=== PATIENT | male | born 1940 | race Caucasian/White ===

== ENCOUNTER → 2018-09-25 | Outpatient (CLI) | payer OTHER ==
[~2018-09-25] MED LIST: ANTIVERT25 MG PO; ASPIR 8181 MG PO; BASAGLAR K100 UNIT/1 SUBQ; COQ-10100 MG PO; HUMALOG100 UNIT/1 SUBQ; IRON325 PO; LEVAQUIN 750 M750 MG PO; LIPITOR 20 MG T20 M1 PO; LISINOPRIL20 MG PO; METFORMIN HCL500 MG PO; NITROGLYCERIN0.4 MG SUBLING; PLAVIX 75 MG TA75 M1 PO; PROSCAR 5MG TABL5 MG PO; PROTONIX40 M1 PO; TYLENOL325 MG PO
--- NOTE | 2018-09-25 17:51 | 2DMMODE ---
[place] [address] 2 D/M-MODE ECHOCARDIOGRAM Name: ELEONORA WINKLER Room: [facility]#: [id number] Admission: 09/25/18 Attend Phys: Jennifer Rubio, Discharge: Date of : 40 Date of Service: 09/25/18 1751 Report #: [id number] THIS REPORT FOR: //name// APPROVED REPORT Study performed: 09/25/2018 14:10:30 EXAM: Comprehensive 2D, Doppler, and color-flow Echocardiogram Patient Location: Out-Patient Status: routine BSA: 2.15 HR: 82 bpm Other Information Study Quality: Good Indications Murmur 2D Dimensions IVSd: 13.84 (7-11mm) LVOT Diam: 19.98 (18-24mm) LVDd: 46.89 mm PWd: 12.25 (7-11mm) Ascending Ao: 29.69 (22-36mm) LVDs: 25.24 (25-40mm) Aortic Root: 32.45 mm Volumes Left Atrial Volume (Systole) LA ESV Index: 26.00 mL/m2 Aortic Valve AoV Peak Luisito.: 3.47 m/s AO Peak Gr.: 48.08 mmHg LVOT Max P.17 mmHg AO Mean Gr.: 29.46 mmHg LVOT Mean P.90 mmHg LVOT Max V: 1.24 m/s AO V2 VTI: 66.27 cm LVOT Mean V: 0.77 m/s SALVATORE (VTI): 1.25 cm2 LVOT V1 VTI: 26.35 cm Mitral Valve MV Peak Gr.: 11.54 mmHg MV Mean Gr.: 4.66 mmHg E/A Ratio: 0.70 MV Decel. Time: 333.58 ms MV E Max Luisito.: 1.01 m/[place] [address] 2 D/M-MODE ECHOCARDIOGRAM Name: ELEONORA WINKLER Room: [facility]#: [id number] Admission: 09/25/18 Attend Phys: Jennifer Rubio, Discharge: Date of : 40 Date of Service: 09/25/18 1751 Report #: [id number] MV PHT: 96.74 ms MVA (PHT): 2.27 cm2 TDI E/Lateral E': 14.43 E/Medial E': 14.43 Medial E' Luisito.: 0.07 m/s Lateral E' Luisito.: 0.07 m/s Pulmonary Valve PV Peak Luisito.: 1.43 m/s PV Peak Gr.: 8.14 mmHg Tricuspid Valve RAP Estimate: 5.00 mmHg TR Peak Gr.: 26.60 mmHg RVSP: 31.60 mmHg PA Pressure: 31.60 mmHg Left Ventricle The left ventricle is normal size. There is normal LV segmental wall motion. Mild concentric left ventricular hypertrophy. Left ventricular systolic function is normal. The left ventricular ejection fraction is within the normal range. LVEF is 65%. Grade I - abnormal relaxation pattern. Right Ventricle The right ventricle is normal size. The right ventricular systolic function is normal. Atria The left atrium size is normal. The right atrium size is normal. Aortic Valve Aortic valve is calcified. Trace aortic regurgitation. Moderate aortic stenosis. Mitral Valve There is mitral annular calcification. Mild mitral regurgitation. No evidence of mitral valve stenosis. Tricuspid Valve The tricuspid valve is normal in structure. Mild tricuspid regurgitation. Pulmonic Valve The pulmonary valve is normal in structure. There is no pulmonic valvular [place] [address] 2 D/M-MODE ECHOCARDIOGRAM Name: ELEONORA WINKLER Room: [facility]#: [id number] Admission: 09/25/18 Attend Phys: Jennifer Rubio, Discharge: Date of : 40 Date of Service: 09/25/18 1751 Report #: [id number] Great Vessels The aortic root is normal in size. IVC is normal in size and collapses >50% with inspiration. Pericardium There is no pericardial effusion. <Conclusion> The left ventricle is normal size. Mild concentric left ventricular hypertrophy. Left ventricular systolic function is normal. The left ventricular ejection fraction is within the normal range. LVEF is 65%. Grade I - abnormal relaxation pattern. The right ventricle is normal size. The left atrium size is normal. Aortic valve is calcified. Trace aortic regurgitation. Moderate aortic stenosis. There is mitral annular calcification. Mild mitral regurgitation. No evidence of mitral valve stenosis. The tricuspid valve is normal in structure. IVC is normal in size and collapses >50% with inspiration. There is no pericardial effusion. There is normal LV segmental wall motion. <ELECTRONICALLY SIGNED> By: Go Joel MD, FACC 09/25/181750 50 50 Go Joel MD, FACC /INF
== END ==
LOC: M.CRD 13:44
DX: I08.1 Rheumatic disorders of both mitral and tricuspid valves (principal)

== ENCOUNTER → 2018-09-27 | Outpatient (CLI) | payer OTHER ==
[~2018-09-27] VITALS: Ht 180.3 cm; Wt 95.7 kg
[2018-09-27 08:32] LABS: ANION GAP 8 mmol/L (7-16); BUN 16 mg/dL (7-18); CALCIUM 8.7 mg/dL (8.5-10.1); CHLORIDE 104 mmol/L (98-107); CO2 28 mmol/L (21-32); CREATININE 0.9 mg/dL (0.6-1.3); GLUCOSE 207 mg/dL (70-99); POTASSIUM 4.3 mmol/L (3.5-5.1); SODIUM 140 mmol/L (136-145)
[2018-09-27 08:38] LABS: ALBUMIN 3.6 g/dL (3.4-5.0); ALKALINE PHOSPHATASE 92 U/L (46-116); SGOT 28 U/L (15-37); SGPT 35 U/L (30-65); TOTAL BILIRUBIN 0.2 mg/dL (<0.1-1.0); TOTAL PROTEIN 7.2 g/dL (6.4-8.2)
[2018-09-27 08:51] LABS: CHOLESTEROL 198 mg/dL (<200); HDL CHOLESTEROL 39 mg/dL (>40); LDL CHOLESTEROL 107 mg/dL (<100); TC:HDL 5.1 Ratio (Not establshd); TRIGLYCERIDE 264 mg/dL (<150); VLDL 53 mg/dL (<40)
[2018-09-27 08:52] LABS: SERUM ASSESSMENT Clear
[2018-09-27 09:10] LABS: HEMATOCRIT 29.3 % (42.0-52.0); HEMOGLOBIN 8.9 gm/dL (14.0-18.0); MCH 26.1 pg (26.0-34.0); MCHC 30.5 g/dL (28.0-37.0); MCV 85.7 fL (80.0-100.0); RBC 3.41 mil/uL (4.50-6.00); RDW-CV 16.7 % (10.5-14.5); WBC 5.1 thou/uL (4.0-11.0)
[2018-09-27 09:28] LABS: APTT 25.9 Seconds (25.0-31.3); PROTIME 10.1 Seconds (9.20-11.50)
[2018-09-27 09:34] VITALS: BP 134/66
[2018-09-27 11:33] VITALS: BP 129/72
[2018-09-27 12:00] VITALS: BP 147/78
--- NOTE | 2018-09-27 12:13 | EKG ---
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: : 1940 Requested By: Gal Botello Order Number: [id number] Matthew MD: Gal Botello Measurements Intervals [place] Rate: 71 P: 42 WV: 172 QRS: 15 QRSD: 104 T: 69 QT: 432 QTc: 470 Interpretive Statements Sinus rhythm Borderline low voltage, extremity leads Nonspecific repol abnormality, diffuse leads Baseline wander in lead(s) V3,V5,V6 Compared to ECG 01/08/2017 12:57:50 Early repolarization now present Sinus tachycardia no longer present Electronically Signed On 09-27-2018 12:12:41 CDT by Gal Botello [email or web address] <ELECTRONICALLY SIGNED> By: Gal Botello MD, FACC 09/27/18 1212 0856 0856 Gal Botello MD, [facility] /EPI
[2018-09-27 13:14] LABS: HEMATOCRIT 31.5 % (42.0-52.0); HEMOGLOBIN 9.5 gm/dL (14.0-18.0); MCHC 30.2 g/dL (28.0-37.0); MPV 7.4 fl. (7.2-11.1); RBC 3.66 mil/uL (4.50-6.00); RDW-CV 16.6 % (10.5-14.5); WBC 5.4 thou/uL (4.0-11.0)
[2018-09-27 13:28] LABS: BUN 15 mg/dL (7-18); TROPONIN-I LEVEL <0.06 ng/mL (<0.06)
--- NOTE | 2018-09-27 13:45 | CARD ---
[address] [address] CARDIAC CATH REPORT Name: ELEONORA WINKLER Room: [facility] Chuckie#: [id number] Admission: 09/27/18 Attend Phys: Gal Botello MD, F Discharge: Date of : 40 Report #: [id number] THIS REPORT FOR: //name// APPROVED REPORT Study performed: 09/27/2018 08:50:03 Patient Details Patient Status: Out-Patient Room #: The patient is a 77 year-old male Event Personnel Gal Botello Manager Security And Safety, Apurva Luna RN Hydraulic Jack Mechanic, Mary Mills Langston, Anthony ARRT (R) Monitor Procedures Performed cath pci Indication Unstable angina Risk Factors Arterial Hypertension, Hypercholesterolemia, Coronary Artery Disease, Diabetes Previous Procedures/Diagnoses Previous PCI Admission/Lab Medications/Medications given during procedure Heparin Unfract. Procedure Narrative The patient was brought electively to the Cardiac Catheterization Laboratory and was prepped and draped in a sterile manner. The right wrist was infiltrated with subcutaneous anesthesia. A Slender Glidesheath sheath was inserted into the right radial artery. Coronary angiography was performed using coronary diagnostic catheters. The right coronary system was accessed and visualized with a Diagnostic AR 1 catheter. The left coronary system was accessed and visualized with a Diagnostic JL4 catheter. Closure device was deployed with a Fr Vasc-Band Lng 27cm. The patient tolerated the procedure well and there were no complications associated with the procedure. There was no hematoma. Unable to cannulate RCA with JR4 nor 3DRC catheter because of tortuous aorta and abnormal takeoff of RCA [address] [address] CARDIAC CATH REPORT Name: PETERSONELEONORA Ca Room: [facility]#: [id number] Admission: 09/27/18 Attend Phys: Gal Botello MD, F Discharge: Date of : 40 Report #: [id number] Intraoperative Conscious Sedation Sedation start time: 10:08 Case end Time: 11:11 Versed 2 mg Fluoro Time: 12.5 minutes Dose: DAP 087522 cGycm2 1658 mGy Contrast Type and Amount: Omnipaque 180 ml Coronary Angiography The patient's coronary anatomy is right dominant. Diagnostic Cath Left Main 0% stenosis LAD 30% proximal stenosis Circumflex long stent noted that started in the mid circumflex and extended into large 2nd marginal branch. There was a 95% stenosis noted at the proximal edge of the stent Right Coronary 30% proximal stenosis. There was a long stent in the mid RCA that had a distal 70% restenosis Ramus 0% stenosis Left Ventriculography Left Ventriculography was not performed. Hemodynamics The aortic pressure is 124/70 mmHg with a mean of 95 mmHg. PCI Technique Lesion Anticoagulation was achieved with Heparin. Patient was preloaded with Plavix. Percutaneous coronary intervention was performed on the mid circumflex artery segment. The lesion stenosis prior to intervention was 95% with DEAN 3 flow. A 6FR XB 3.5 100CM Guide Catheter was used to engage the lm ostium. A IG: BMW 190cm Interventional Guidewire was used to cross the lesion. BALLOON DILATION A Balloon catheter Trek RX 2.5 X 8 was inserted and inflated up to 12.00atm for 12seconds. Repeat angiography revealed the following post-dilatation results: 90% stenosis. Additional Inflation: 12.00atm for 7seconds. Additional Inflation: 12.00atm for 5seconds. STENT DEPLOYMENT A bare metal stent Vision RX 3.5 X 15 was inserted and inflated up to 11.00atm for 14seconds. Repeat [place] [address] CARDIAC CATH REPORT Name: ELEONORA WINKLER Room: [facility]#: [id number] Admission: 09/27/18 Attend Phys: Gal Boetllo MD, F Discharge: Date of : 40 Report #: [id number] post-stent deployment results: 0% stenosis. Additional Inflation: 11.00atm for 14seconds. Additional Inflation: 11.00atm for 12seconds. Final angiography reveals 0 % stenosis with DEAN 3 flow. Conclusion 1. 95% stenosis noted at the proximal edge of a stent noted in the mid circumflex 2. 70% stenosis noted in the middle of a stent in the mid rca 3. successful placement of a bare metal stent in the mid circumflex 4. refer back to primary memory care director for evaluation of anemia Recommendations Cardiac Rehabilitation Referral Aggressive Medical Therapy <ELECTRONICALLY SIGNED> By: Gal Botello MD, [facility] 09/27/18 1345 1345 1345Davityson Botello MD, [facility] /INF
[2018-09-27 14:44] VITALS: BP 147/78
--- NOTE | 2018-09-27 15:51 | EKG ---
[place] [address] ELECTROCARDIOGRAM REPORT Name: PETERSONELEONORA Chamberlain Room: [facility]#: [id number] Admission: 09/27/18 Attend Phys: Gal Botello MD, F Discharge: Date of : 40 Report #: [id number] THIS REPORT FOR: //name// [facility] Test Date: 2018-09-27 Test Time: 13:18:11 Pat Name: ELEONORA WINKLER Department: Room: Gender: Electronic Engineering Draftsperson: : 1940 Requested By: Gal Botello Order Number: [id number] Matthew MD: Gal Botello Measurements Intervals [place] Rate: 79 P: 43 VT: 170 QRS: 5 QRSD: 93 T: 13 QT: 417 QTc: 479 Interpretive Statements Sinus rhythm Nonspecific repol abnormality, diffuse leads Compared to ECG 09/27/2018 08:56:20 No significant changes Electronically Signed On 09-27-2018 15:50:54 CDT by Gal Botello [email or web address] <ELECTRONICALLY SIGNED> By: Gal Botello MD, [facility] 09/27/18 1550 17 Gal Botello MD, FACC /EPI
== END | disposition home or self-care (01) ==
LOC: M.CL 07:26
PROVIDERS: Internal Medicine Cardiovascular Disease
DX: I25.10 Atherosclerotic heart disease of native coronary artery without angina pectoris (principal); I10 Essential (primary) hypertension; E78.5 Hyperlipidemia, unspecified; E11.9 Type 2 diabetes mellitus without complications; E78.00 Pure hypercholesterolemia, unspecified; K21.9 Gastro-esophageal reflux disease without esophagitis; M19.90 Unspecified osteoarthritis, unspecified site; Z98.890 Other specified postprocedural states; Z79.01 Long term (current) use of anticoagulants; Z88.8 Allergy status to other drugs, medicaments and biological substances; Z79.82 Long term (current) use of aspirin; Z79.899 Other long term (current) drug therapy

== ENCOUNTER → 2018-10-29 | Outpatient (CLI) | payer OTHER ==
[2018-10-29 16:31] LABS: HEMATOCRIT 27.2 % (42.0-52.0); HEMOGLOBIN 8.1 gm/dL (14.0-18.0); MCH 24.5 pg (26.0-34.0); MCHC 29.6 g/dL (28.0-37.0); MPV 6.7 fl. (7.2-11.1); RBC 3.28 mil/uL (4.50-6.00); RDW-CV 17.1 % (10.5-14.5); WBC 5.4 thou/uL (4.0-11.0)
[2018-10-29 16:42] LABS: CALCIUM 9.1 mg/dL (8.5-10.1); CREATININE 0.9 mg/dL (0.6-1.3); POTASSIUM 3.6 mmol/L (3.5-5.1)
[2018-10-29 16:49] LABS: ALBUMIN 3.6 g/dL (3.4-5.0); TOTAL BILIRUBIN 0.2 mg/dL (<0.1-1.0); TOTAL PROTEIN 7.1 g/dL (6.4-8.2)
== END ==
LOC: M.LAB 16:10
PROVIDERS: Internal Medicine
DX: D64.9 Anemia, unspecified (principal); R06.02 Shortness of breath

== ENCOUNTER → 2018-10-30 | Outpatient (CLI) | payer OTHER | LOC: M.LAB 11:43 | DX: D50.0 Iron deficiency anemia secondary to blood loss (chronic) (principal) ==

== ENCOUNTER 2019-02-23 20:27 | Emergency (ER) | payer OTHER ==
[~2019-02-23] VITALS: Ht 177.8 cm; Wt 96.6 kg
[2019-02-23] MEDS ORDERED: JANUVIA100 MG PO (20:44)
[2019-02-23] MEDS ORDERED: VITAMINC500 PO (20:44)
[2019-02-23] MEDS ORDERED: KEFLEX500 M1 PO (21:48)
[2019-02-23 22:04] VITALS: BP 152/61
== END 2019-02-23 22:04 | disposition home or self-care (01) ==
LOC: M.ERS 20:27
DX: S61.214A Laceration without foreign body of right ring finger without damage to nail, initial encounter (principal); E78.5 Hyperlipidemia, unspecified; I10 Essential (primary) hypertension; E11.9 Type 2 diabetes mellitus without complications; K21.9 Gastro-esophageal reflux disease without esophagitis; E78.00 Pure hypercholesterolemia, unspecified; M19.90 Unspecified osteoarthritis, unspecified site; Z88.8 Allergy status to other drugs, medicaments and biological substances; W26.9XXA Contact with unspecified sharp object(s), initial encounter; Y93.89 Activity, other specified; Y92.89 Other specified places as the place of occurrence of the external cause; Y99.8 Other external cause status

== ENCOUNTER → 2019-06-04 | Outpatient (CLI) | payer OTHER ==
[~2019-06-04] MED LIST changes: +JANUVIA100 MG PO; +KEFLEX500 M1 PO; +VITAMINC500 PO
[2019-06-04 11:51] VITALS: BP 128/57; BP 135/51; BP 140/60; BP 148/63
--- NOTE | 2019-06-04 14:42 | NUR ---
ARRIVED AMBULATORY. MADE SELF COMFORTABLE. ORDER REVIEWED WITH DR. HUDDLESTON WHO SPOKE WITH DR. CANTU AND IT WAS DECIDED TO ADMINISTER ONLY 1 UNIT PRBC. PT UPDATED AND AGREED. INFUSION COMPELTED AND TOERATED WELL. JEN QUESTIONS OR NEEDS AT DISCHARGE.
== END ==
LOC: M.INFUS 10:00
DX: C94.6 Myelodysplastic disease, not elsewhere classified (principal); D64.9 Anemia, unspecified

== ENCOUNTER 2019-06-13 13:17 | Emergency (ER) | payer OTHER ==
[~2019-06-13] VITALS: Ht 180.3 cm; Wt 95.3 kg
[2019-06-13 13:40] LABS: URINE BILIRUBIN NEGATIVE (Negative); URINE BLOOD NEGATIVE (Negative); URINE CLARITY CLEAR; URINE COLOR YELLOW; URINE GLUCOSE-RANDOM NEGATIVE (Negative); URINE KETONES NEGATIVE (Negative); URINE LEUKOCYTES-REFLEX NEGATIVE (Negative); URINE NITRITE-REFLEX NEGATIVE (Negative); URINE PROTEIN NEGATIVE (Negative); URINE UROBILINOGEN 0.2 E.U./dl (0.2-1.0)
[2019-06-13 14:01] LABS: ABSOLUTE BASOPHILS 0.1 thou/uL (0.0-0.2); ABSOLUTE EOSINOPHILS 0.1 thou/uL (0.0-0.7); ABSOLUTE LYMPHOCYTES 1.1 thou/uL (0.8-5.3); ABSOLUTE MONOCYTES 0.6 thou/uL (0.0-1.2); ABSOLUTE NEUTROPHILS 3.1 thou/uL (1.6-8.1); BASOPHILS 1.6 %; EOSINOPHILS 2.7 %; HEMATOCRIT 25.1 % (42.0-52.0); HEMOGLOBIN 7.6 gm/dL (14.0-18.0); LYMPHOCYTES 22.5 %; MCH 25.1 pg (26.0-34.0); MCHC 30.4 g/dL (28.0-37.0); MCV 82.5 fL (80.0-100.0); MONOCYTES 11.6 %; NUCLEATED RBCS 0 /100WBC; PLATELET COUNT* 245 thou/uL (150-400); POLYS 61.6 %; RBC 3.04 mil/uL (4.50-6.00); RDW-CV 17.4 % (10.5-14.5)
[2019-06-13 14:05] LABS: APTT 23.9 Seconds (25.0-31.3); PROTIME 10.1 Seconds (9.20-11.50)
[2019-06-13 14:14] LABS: ANION GAP 10 mmol/L (7-16); BUN 16 mg/dL (7-18); CHLORIDE 107 mmol/L (98-107); CO2 26 mmol/L (21-32); GLUCOSE 161 mg/dL (70-99); POTASSIUM 3.8 mmol/L (3.5-5.1); SODIUM 143 mmol/L (136-145)
[2019-06-13 14:26] LABS: ALBUMIN 3.5 g/dL (3.4-5.0); ALKALINE PHOSPHATASE 75 U/L (46-116); LIPASE 204 U/L (73-393); SGOT 29 U/L (15-37); SGPT 42 U/L (30-65); TOTAL BILIRUBIN 0.3 mg/dL (<0.1-1.0); TOTAL PROTEIN 6.6 g/dL (6.4-8.2); TROPONIN-I LEVEL <0.06 ng/mL (<0.06)
[2019-06-13 16:30] VITALS: BP 167/70
--- NOTE | 2019-06-13 16:47 | EKG ---
[place] [address] ELECTROCARDIOGRAM REPORT Name: ELEONORA WINKLER Room: [facility]#: [id number] Admission: 06/13/19 Attend Phys: Discharge: 06/13/19 Date of : 40 Report #: [id number] THIS REPORT FOR: //name// [facility] ED Test Date: 2019-06-13 Test Time: 13:43:10 Pat Name: ELEONORA WINKLER Department: Room: Gender: M Warp Hauler: KE : 1940 Requested By: Rigoberto De Los Santos Order Number: [id number] MD: Go Joel Measurements Intervals [place] Rate: 82 P: 57 CT: 173 QRS: 36 QRSD: 105 T: 37 QT: 432 QTc: 505 Interpretive Statements Sinus rhythm Probable left atrial enlargement Borderline ST depression, diffuse leads Prolonged QT interval Compared to ECG 11/01/2018 10:09:25 Prolonged QT interval now present ST (T wave) deviation still present Electronically Signed On 06-13-2019 16:47:21 CDT by Go Joel [email or web address] <ELECTRONICALLY SIGNED> By: Go Joel MD, [facility] 06/13/19 1647 1343 1343 Go Joel MD, [facility] /EPI
== END 2019-06-13 16:10 | disposition home or self-care (01) ==
LOC: M.ERS 13:17
PROVIDERS: Family Medicine
DX: D64.9 Anemia, unspecified (principal); E78.5 Hyperlipidemia, unspecified; I10 Essential (primary) hypertension; E11.9 Type 2 diabetes mellitus without complications; K21.9 Gastro-esophageal reflux disease without esophagitis; E78.00 Pure hypercholesterolemia, unspecified; M19.90 Unspecified osteoarthritis, unspecified site; Z88.4 Allergy status to anesthetic agent; Z88.8 Allergy status to other drugs, medicaments and biological substances

== ENCOUNTER 2019-10-20 12:04 | Inpatient (IN) | payer OTHER ==
[~2019-10-20] VITALS: Ht 180.3 cm; Wt 102.6 kg
--- NOTE | ~2019-10-20 | PROC ---
[address] [address] PROCEDURE REPORT Name: ELEONORA WINKLER Room: [address] IN M.R.#: [id number] Admission: 10/20/19 Attend Phys: Olga Cardona Discharge: 10/23/19 Date of : 40 Report #: [id number] THIS REPORT FOR: //name// For GI report, please see the Provation report in Perceptive 7 content. By: [id number] Records Staff JACQUES /BÁRBARA
[2019-10-20 12:14] VITALS: BP 115/27
[2019-10-20] MEDS ORDERED: LASIX 40 MG TAB40 MG PO (12:28)
[2019-10-20] MEDS ORDERED: KLOR-CON 1010 MEQ PO (12:28)
[2019-10-20 12:44] LABS: ABSOLUTE BASOPHILS 0.1 thou/uL (0.0-0.2); ABSOLUTE EOSINOPHILS 0.2 thou/uL (0.0-0.7); ABSOLUTE LYMPHOCYTES 0.9 thou/uL (0.8-5.3); ABSOLUTE MONOCYTES 0.6 thou/uL (0.0-1.2); ABSOLUTE NEUTROPHILS 4.2 thou/uL (1.6-8.1); EOSINOPHILS 2.9 %; HEMATOCRIT 22.6 % (42.0-52.0); HEMOGLOBIN 7.2 gm/dL (14.0-18.0); LYMPHOCYTES 15.8 %; MCH 31.7 pg (26.0-34.0); MCHC 31.8 g/dL (28.0-37.0); MCV 99.7 fL (80.0-100.0); MONOCYTES 10.5 %; MPV 7.3 fl. (7.2-11.1); NUCLEATED RBCS 0 /100WBC; PLATELET COUNT* 243 thou/uL (150-400); POLYS 69.8 %; RBC 2.26 mil/uL (4.50-6.00); RDW-CV 17.1 % (10.5-14.5)
[2019-10-20 12:53] LABS: CALCIUM 7.8 mg/dL (8.5-10.1); CREATININE 1.1 mg/dL (0.6-1.3); POTASSIUM 4.1 mmol/L (3.5-5.1)
[2019-10-20 12:54] LABS: APTT 23.1 Seconds (25.0-31.3); PROTIME 10.2 Seconds (9.20-11.50)
[2019-10-20 13:03] LABS: ALBUMIN 3.2 g/dL (3.4-5.0); TOTAL BILIRUBIN 0.3 mg/dL (<0.1-1.0); TOTAL PROTEIN 6.3 g/dL (6.4-8.2)
[2019-10-20 14:16] LABS: MAGNESIUM 1.8 mg/dL (1.8-2.4); PHOSPHORUS* 2.9 mg/dL (2.5-4.9)
[2019-10-20 15:31] VITALS: BP 128/36
--- NOTE | 2019-10-20 15:54 | EKG ---
[place] [address] ELECTROCARDIOGRAM REPORT Name: PETERSONELEONORA Room: [place] [address] ADM IN M.R.#: [id number] Admission: 10/20/19 Attend Phys: Olga Cardona Discharge: Date of : 40 Report #: [id number] THIS REPORT FOR: //name// [facility] ED Test Date: 2019-10-20 Test Time: 12:35:19 Pat Name: ELEONORA WINKLER Department: Room: [facility] Gender: M Form Builder Helper: : 1940 Requested By: Sherman Agosto Order Number: [id number] MD: Gal Botello Measurements Intervals [place] Rate: 80 P: 31 IA: 163 QRS: 26 QRSD: 104 T: 49 QT: 401 QTc: 463 Interpretive Statements Sinus rhythm Borderline repol abnormality, diffuse leads Compared to ECG 06/13/2019 13:43:10 Prolonged QT interval no longer present Electronically Signed On 10-20-2019 15:54:40 [employer] by Gal Botello [email or web address] <ELECTRONICALLY SIGNED> By: Gal Btoello MD, FAC 10/20/19 1554 1235 1235 Gal Botello MD, [facility] /EPI
[2019-10-20 17:47] VITALS: BP 124/56; BP 131/41; BP 135/46
[2019-10-20 19:45] VITALS: BP 126/44
[2019-10-20 22:00] VITALS: BP 118/63; BP 121/56; BP 122/51; BP 126/44; BP 136/45
--- NOTE | 2019-10-20 22:41 | NUR ---
INITAL ASSESMENT COMPLETED AT 194. PT PLEASANT AND COOPERATIVE. CALL LIGHT IN REACH, PT DEMONSTRATES PROPER USE. AT 2099 REPORTED PTS HGB LEVEL TO DR LAKE. ORDER RECIEVED TO TRANSFUSE ONE UNIT OF BLOOD. BLOOD OBTAINED FROM BLOOD BANK AND VERIFIED BY TWO RN'S. TRANSFUSION STARTED AT 0.
[2019-10-21] VITALS: BP 136/45
[2019-10-21 04:00] VITALS: BP 126/50
[2019-10-21 04:35] LABS: MCH 30.8 pg (26.0-34.0); MCHC 32.3 g/dL (28.0-37.0); MCV 95.4 fL (80.0-100.0); MPV 7.3 fl. (7.2-11.1); RBC 2.93 mil/uL (4.50-6.00); RDW-CV 17.5 % (10.5-14.5); WBC 7.2 thou/uL (4.0-11.0)
[2019-10-21 04:42] LABS: CALCIUM 7.9 mg/dL (8.5-10.1); POTASSIUM 4.2 mmol/L (3.5-5.1)
[2019-10-21 05:28] LABS: % SATURATION 11 % (20-39); IRON 36 ug/dL (50-175)
[2019-10-21 08:00] VITALS: BP 141/48
--- NOTE | 2019-10-21 11:36 | NUR ---
MET WITH PT TO DISCUSS HOME SITUATION/DC PLANNING. PT LIVES WITH . HE USES CANE AND GRAB BARS AND IS INDEPENDENT AND ACTIVE. HASN'T HAD HH OR BEEN TO SNF. PT STATES HIS DOESN'T USUALLY DRIVE D/T A VISION ISSUE BUT IS ABLE TO. PT PLANS TO RETURN HOME AT DC. WILL FOLLOW
[2019-10-21 11:41] VITALS: BP 125/53
--- NOTE | 2019-10-21 16:45 | NUR ---
PATIENT RESTIN GI NROOM.. UP AD GENOVEVA TO BATHROOM. VSS. 2 DAY BOWEL PREP INITIATED THIS AFTERNOON. HOURLY ROUNDING COMPLETED FOR PATIENT SAFETY. 3 BOTTLE OF GATORAIDE PROVIDED FOR PATINET TO PROMOTE HYDRATION WHILE HAVING BOWEL PREP AND BEING OF CLEAR LIQUID DIET.
[2019-10-21 20:00] VITALS: BP 119/74
[2019-10-22] VITALS: BP 136/47
[2019-10-22 05:14] LABS: HEMATOCRIT 27.8 % (42.0-52.0); MCH 31.2 pg (26.0-34.0); MCHC 32.4 g/dL (28.0-37.0); MCV 96.2 fL (80.0-100.0); MPV 7.2 fl. (7.2-11.1); RBC 2.89 mil/uL (4.50-6.00); RDW-CV 17.4 % (10.5-14.5); WBC 5.3 thou/uL (4.0-11.0)
[2019-10-22 05:44] LABS: ALBUMIN 3.1 g/dL (3.4-5.0); CALCIUM 7.7 mg/dL (8.5-10.1); CREATININE 0.9 mg/dL (0.6-1.3); TOTAL BILIRUBIN 0.4 mg/dL (<0.1-1.0)
--- NOTE | 2019-10-22 07:56 | NUR ---
A+O X 4. PT COMPLIANT WITH BOWEL PREP. CONTINUED TO HAVE LOOS STOOLS THROUHG THE NIGHT. PT WAS OVERLY TOUCHY AND FLIRTATIOUS WITH FEMALE STAFF. NOTIFIED CHARGE NURSE. CALL LIGHT IN REACH. HOURLY ROUNDING FOR SAFETY.
[2019-10-22 08:00] VITALS: BP 129/51
--- NOTE | 2019-10-22 11:33 | 2DMMODE ---
[place] [address] 2 D/M-MODE ECHOCARDIOGRAM Name: PETERSONELEONORA Room: [facility] ADM IN [facility]#: [id number] Admission: 10/20/19 Attend Phys: Olga locke Sa Discharge: Date of : 40 Date of Service: 10/22/19 1133 Report #: [id number] THIS REPORT FOR: //name// APPROVED REPORT Study performed: 10/22/2019 09:59:33 EXAM: Comprehensive 2D, Doppler, and color-flow Echocardiogram Patient Location: In-Patient Room #: [facility] Status: routine BSA: 2.22 HR: 62 bpm BP: 129/51 mmHg Rhythm: NSR Other Information Study Quality: Good Indications Aortic Valve Disease Murmur Dyspnea 2D Dimensions IVSd: 10.77 (7-11mm) LVOT Diam: 19.72 (18-24mm) LVDd: 57.19 mm PWd: 10.27 (7-11mm) Ascending Ao: 30.98 (22-36mm) LVDs: 31.55 (25-40mm) Aortic Root: 31.55 mm Volumes Left Atrial Volume (Systole) LA ESV Index: 32.50 mL/m2 Aortic Valve AoV Peak Luisito.: 3.98 m/s AO Peak Gr.: 63.24 mmHg LVOT Max P.63 mmHg AO Mean Gr.: 39.03 mmHg LVOT Mean P.91 mmHg LVOT Max V: 1.38 m/s AO V2 VTI: 89.67 cm LVOT Mean V: 0.92 m/s SALVATORE (VTI): 1.08 cm2 LVOT V1 VTI: 31.77 cm Mitral Valve MV Mean Gr.: 4.78 mmHg E/A Ratio: 0.90 [place] [address] 2 D/M-MODE ECHOCARDIOGRAM Name: ELEONORA WINKLER Room: [address] IN .R.#: [id number] Admission: 10/20/19 Attend Phys: Olga locke Sa Discharge: Date of : 40 Date of Service: 10/22/19 1133 Report #: [id number] MV Decel. Time: 356.99 ms MV E Max Luisito.: 1.42 m/s MV PHT: 103.53 ms MVA (PHT): 2.13 cm2 TDI E/Lateral E': 20.29 E/Medial E': 17.75 Medial E' Luisito.: 0.08 m/s Lateral E' Luisito.: 0.07 m/s Pulmonary Valve PV Peak Luisito.: 1.48 m/s PV Peak Gr.: 8.78 mmHg Left Ventricle The left ventricle is normal size. There is normal LV segmental wall motion. There is normal left ventricular wall thickness. Left ventricular systolic function is normal. The left ventricular ejection fraction is within the normal range. LVEF is 60-65%. Grade I - abnormal relaxation pattern. Right Ventricle The right ventricle is normal size. The right ventricular systolic function is normal. Atria Left atrium is mildly dilated. The right atrium size is normal. Aortic Valve Severe aortic valve sclerosis. No aortic regurgitation is present. severe aortic stenosis. Mitral Valve There is mitral annular calcification. Mild mitral regurgitation. Mild mitral stenosis. Tricuspid Valve The tricuspid valve is normal in structure. Trace tricuspid regurgitation. Pulmonic Valve Pulmonic valve is not well visualized. There is no pulmonic valvular regurgitation. Great Vessels The aortic root is normal in size. [place] [address] 2 D/M-MODE ECHOCARDIOGRAM Name: ELEONORA WINKLER Room: [address] IN [facility]#: [id number] Admission: 10/20/19 Attend Phys: Olga locke Sa Discharge: Date of : 40 Date of Service: 10/22/19 1133 Report #: [id number] Pericardium There is no pericardial effusion. <Conclusion> LVEF is 60-65%. Left atrium is mildly dilated. severe aortic stenosis. Mild mitral regurgitation. <ELECTRONICALLY SIGNED> By: Gal Botello MD, FACC 10/22/19 1133 1133 113 Gal Botello MD, FAC /INF
--- NOTE | 2019-10-22 14:21 | CON ---
[address] [address] CONSULTATION Name: ELEONORA WINKLER Room: [place] [address] ADM IN M.R.#: [id number] Admission: 10/20/19 Attend Phys: Olga Cardona Discharge: Date of : 40 Report #: [id number] THIS REPORT FOR: //name// CC: Gal Rene DATE OF SERVICE: 10/22/2019 CARDIOLOGY CONSULTATION HISTORY OF PRESENT ILLNESS: The patient is a 79-year-old white male who I was asked to see in the hospital today after he complained of being short of breath. The patient apparently had coronary stents placed both in 2004 and in [address] Hagen here at [facility]. I performed repeat cardiac catheterization in 09/2017 from the right radial artery. There was a 95% stenosis circumflex artery and placed a new bare metal stent. He has done well since that time and denies any recent chest pain, palpitations, syncope. He does have a history of at least moderate aortic stenosis. He is not very active. He was admitted to [facility] a year ago with anemia and required transfusion. He underwent endoscopy and no source of bleeding was found. For the past several weeks, he has had increasing shortness of breath. He finally came to the Emergency Room 2 days ago and was found to be anemic. He is scheduled to undergo repeat endoscopy. He denies a history of bleeding such as bloody nose, vomiting blood, blood in stool, blood in his urine. PAST MEDICAL HISTORY: Otherwise significant for appendectomy, shoulder surgery, hypertension, hyperlipidemia, moderate aortic stenosis. MEDICATIONS: On admission include aspirin, Plavix, Proscar, Humulin, lisinopril, metformin, Protonix. He could not tolerate statin drugs in the past nor red yeast rice. ALLERGIES: He has no known drug allergies. FAMILY HISTORY: His father had heart disease. SOCIAL HISTORY: He is . He and his live here in [place]. He is a retired hall. Quit smoking years ago. No longer uses alcohol. REVIEW OF SYSTEMS: No history of stroke. He had a previous carotid Doppler study, showed no significant stenosis. He has no history of liver disease, kidney disease, cancer, psychiatric illness, chronic skin condition. PHYSICAL EXAMINATION: GENERAL: Revealed an elderly male, appeared [place] [address] CONSULTATION Name: PETERSONELEONORA Ca Room: [address] IN [facility]#: [id number] Admission: 10/20/19 Attend Phys: Olga Cardona Discharge: Date of : 40 Report #: [id number] VITAL SIGNS: His blood pressure 130/70, his pulse was 80. He is afebrile. HEENT: He was anicteric. Conjunctivae are pink. Mucous membranes moist. NECK: Veins are nondistended. Radiating systolic murmur noted in both carotids. CHEST: Clear to auscultation. CARDIOVASCULAR: Regular rate and rhythm, grade 4 systolic ejection murmur at left sternal border. ABDOMEN: Soft. EXTREMITIES: Had no edema. Dorsalis pedis pulse 1+ bilaterally. SKIN: Warm and dry. NEUROLOGIC: Nonfocal. LABORATORY DATA: His ECG showed a sinus rhythm, nonspecific ST-segment changes. His workup: He had a chest x-ray a year ago that showed ejection fraction 60%, moderate aortic stenosis, mild mitral regurgitation. The peak gradient across the aortic valve was noted to be 48 mmHg. His lab work: He had a venous duplex scan of the legs that showed no evidence of DVT. His chest x-ray on admission showed normal heart size, clear lung aly, some atelectasis. His lab work: Sodium 144, BUN 14, creatinine 0.9, glucose 120. His liver function studies were normal. Albumin 3.1. Troponin 0.06. BNP 180. His white blood cell count 5.3, hemoglobin on admission was 7.2. His iron saturation is only 11%, ferritin was only 24. IMPRESSION AND RECOMMENDATIONS: 1. Diabetes. 2. Coronary artery disease. Previous stent. I would hold aspirin and Plavix at this time. 3. Hypertension. The patient is on JACQUI inhibitor. 4. Aortic stenosis. Recommend repeat echocardiogram. 5. Hyperlipidemia. The patient cannot tolerate statin drugs. 6. Iron deficiency anemia. Possible angiodysplasia from his aortic stenosis. The patient appears to have no cardiac contraindication to endoscopy. <ELECTRONICALLY SIGNED> By: Gal Botello MD, [facility] 10/22/19 1421 0831 [id number] Botello MD, FACC /nt
[2019-10-22 16:00] VITALS: BP 152/48
--- NOTE | 2019-10-22 16:51 | NUR ---
RECEIVED REPORT FROM PEGGY NORTON. ASSUMED CARE OF PT AROUND 0730. PT A&O X4. VSS. PT M/S STATUS. AM ASSESSMENT AND VITALS COMPLETED CHARTED. IV INTACT. MEDS PER EMAR. PT HAS DENIED PAIN OR DISCOMFORT THIS SHIFT. COMPLIANT WITH CONTINUED BOWEL PREP. PT HAS HAD MULTIPLE LOOSE STOOLS THROUGHOUT SHIFT. NO BLOOD NOTED IN STOOL. PT TO HAVE EGD/COLON TOMORROW. PT TOLERATING CLEAR LIQUID DIET. TO BE NPO AFTER MIDNIGHT. PT A BIT TOUCHY WITH STAFF AT TIMES, BUT NOT IN INAPPROPRIATE AREAS. PT CURRENTLY SITTING UP IN BEDSIDE CHAIR. CALL LIGHT IS WITHIN REACH. HOURLY ROUNDING PERFORMED. LOW FALL RISKP RECAUTIONS IN PLACE. REPORT GIVEN TO HAMILTON.
[2019-10-22 20:00] VITALS: BP 131/62
[2019-10-23 04:37] LABS: HEMOGLOBIN 9.2 gm/dL (14.0-18.0); MCH 30.4 pg (26.0-34.0); MCHC 31.8 g/dL (28.0-37.0); MCV 95.6 fL (80.0-100.0); MPV 7.2 fl. (7.2-11.1); RBC 3.04 mil/uL (4.50-6.00); RDW-CV 17.1 % (10.5-14.5); WBC 4.1 thou/uL (4.0-11.0)
[2019-10-23 04:50] LABS: ALBUMIN 3.1 g/dL (3.4-5.0); ALKALINE PHOSPHATASE 83 U/L (46-116); ANION GAP 7 mmol/L (7-16); BUN 9 mg/dL (7-18); CHLORIDE 108 mmol/L (98-107); CHOLESTEROL 154 mg/dL (<200); CO2 28 mmol/L (21-32); CREATININE 0.8 mg/dL (0.6-1.3); GLUCOSE 120 mg/dL (70-99); HDL CHOLESTEROL 30 mg/dL (>40); LDL CHOLESTEROL 98 mg/dL (<100); POTASSIUM 3.6 mmol/L (3.5-5.1); SERUM ASSESSMENT Clear; SGOT 92 U/L (15-37); SGPT 88 U/L (30-65); SODIUM 143 mmol/L (136-145); TC:HDL 5.1 Ratio (Not establshd); TOTAL BILIRUBIN 0.4 mg/dL (<0.1-1.0); TOTAL PROTEIN 5.9 g/dL (6.4-8.2); TRIGLYCERIDE 130 mg/dL (<150); VLDL 26 mg/dL (<40)
--- NOTE | 2019-10-23 06:56 | NUR ---
Pt is aox4, respirations are even and unlabored. Pt is in no acute distress at this time. Will continue to monitor.
--- NOTE | 2019-10-23 07:00 | NUR ---
THIS RN AGREES WITH THE ASSESMENT AND CHARTING OF THE COURT NORTON.
[2019-10-23 07:45] VITALS: BP 150/66
[2019-10-23 09:30] VITALS: BP 150/66
--- NOTE | 2019-10-23 11:04 | NUR ---
ASSUMED CARE OF PT AT 0730. PT RESTING IN BED. A&0X4, DENIES ANY PAIN OR SHORTNESS OF BREATH AT THIS TIME. NPO FOR EGD AND COLONOSCOPY TODAY. CONSENT SIGNED AND PLACED IN FRONT OF CHART. MED SURG STATUS. MURMUR NOTED. ON RA SAT UPPER 90'S. PT UP AD GENOVEVA IN ROOM. PT GOAL FOR TODAY IS COMPLETE EGD/COLON AND DISCHARGE PLANNING TO HOME AFTER IF OKAY WITH GI. AM ASSESSMENT CHARTED. MEDICATIONS PER JAN. PT REPOSITIONS SELF. HOURLY ROUNDING OBSERVED. BED IN LOW POSITION. CALL LIGHT WITHIN REACH. WILL CONTINUE PLAN OF CARE.
[2019-10-23 11:21] VITALS: BP 150/66
[2019-10-23 13:15] VITALS: BP 119/55
--- NOTE | 2019-10-23 13:57 | NUR ---
PT HAD EGD/COLON TODAY. TOLERATED WELL. DISCHARGE ORDERS RECEIVED. DISCHARGE INSTRUCTIONS, CARE NOTES AND FOLLOW UP APPTS GIVEN TO PT. PT COMMUNICATES UNDERSTANDING OF DISCHARGE TEACHING. IV AND ROBOT DESIGNER REMOVED. PT DISCHARGED WITH ALL BELONGINGS AND PAPERWORK VIA WHEELCHAIR WITH NURSING STAFF TO SPOUSE OWN PERSONAL VEHICLE.
--- NOTE | 2019-10-28 11:07 | PATH ---
[address] [address] PATHOLOGY RPT PROCEDURE Name: CESAR TOLEDO Room: [address] IN M.R.#: [id number] Admission: 10/20/19 Date of : 40 Discharge: 10/23/19 Report #: [id number] Path Case #: [id number] LCA Accession Number: [id number] . 01 Material submitted: . colon - DISTAL TRANSVERSE COLON POLYP. Modifiers: distal, transverse . 01 Clinical history: . None provided . 02 Diagnosis: Distal transverse colon polyp: -Hyperplastic polyp, negative for dysplasia/adenomatous change. (NEHAL:christopher; 10/27/2019) QMS 10/28/2019 1102 Local . 02 Electronically signed: . Adolph Cunha MD, Pathologist NPI- [id number] . 01 Gross description: . Received in formalin labeled "Cesar Toledo, distal transverse colon polyp," is a single segment of martinez soft tissue measuring 0.3 cm in maximum dimension. The specimen is entirely submitted in cassette A1. (TSD; 10/24/2019) TOB/TOB 10/24/2019 1727 Local . 02 Pathologist provided ICD-10: D64.9 . 02 CPT . 737389 Specimen Comment: A courtesy copy of this report has been sent to [phone], [phone] Specimen Comment: [id number] Specimen Comment: Report sent to MORGAN / DR SOLANO Performed at: [address], [place], [place] [id number] MD Eusebio Rogers MD Phone: [phone] Performed at: 02 [facility] [address], [place], [place] [id number] MD Adolph Cunha MD Phone: [phone]
== END 2019-10-23 13:57 | disposition home or self-care (01) | DRG 812 ==
LOC: M.ERS 12:04 → M.TBA-ER 13:41 → M.2W 13:41
PROVIDERS: Emergency Medicine Emergency Medical Services; Internal Medicine; Internal Medicine Gastroenterology; Nurse Practitioner Adult Health; ADMIT Family Medicine
PROC: 30233N1 Transfusion of Nonautologous Red Blood Cells into Peripheral Vein, Percutaneous Approach (ICD-10-PCS; principal; 2019-10-20)
PROC: 0DJ08ZZ Inspection of Upper Intestinal Tract, Via Natural or Artificial Opening Endoscopic (ICD-10-PCS; 2019-10-23)
PROC: 0DBH8ZZ Excision of Cecum, Via Natural or Artificial Opening Endoscopic (ICD-10-PCS; 2019-10-23)
PROC: 0DBL8ZZ Excision of Transverse Colon, Via Natural or Artificial Opening Endoscopic (ICD-10-PCS; 2019-10-23)
DX: D50.9 Iron deficiency anemia, unspecified (principal); I50.32 Chronic diastolic (congestive) heart failure; E78.5 Hyperlipidemia, unspecified; I25.10 Atherosclerotic heart disease of native coronary artery without angina pectoris; E11.9 Type 2 diabetes mellitus without complications; K21.9 Gastro-esophageal reflux disease without esophagitis; K57.30 Diverticulosis of large intestine without perforation or abscess without bleeding; E78.00 Pure hypercholesterolemia, unspecified; M19.90 Unspecified osteoarthritis, unspecified site; I11.0 Hypertensive heart disease with heart failure; D17.5 Benign lipomatous neoplasm of intra-abdominal organs; I35.0 Nonrheumatic aortic (valve) stenosis; G89.4 Chronic pain syndrome; K64.4 Residual hemorrhoidal skin tags; D12.0 Benign neoplasm of cecum; D12.3 Benign neoplasm of transverse colon; Z88.1 Allergy status to other antibiotic agents; Z88.8 Allergy status to other drugs, medicaments and biological substances; Z79.899 Other long term (current) drug therapy; Z79.82 Long term (current) use of aspirin; Z87.19 Personal history of other diseases of the digestive system; Z95.5 Presence of coronary angioplasty implant and graft; Z79.84 Long term (current) use of oral hypoglycemic drugs; Z79.4 Long term (current) use of insulin; Z87.891 Personal history of nicotine dependence; I25.2 Old myocardial infarction; Z90.89 Acquired absence of other organs; Z82.49 Family history of ischemic heart disease and other diseases of the circulatory system

== ENCOUNTER → 2020-04-30 | Outpatient (CLI) | payer MEDICARE ==
[2020-04-30] VITALS (9 sets, daily range): BP systolic 140–158; BP diastolic 57–70
[~2020-04-30] VITALS: Ht 180.3 cm; Wt 97.7 kg
[~2020-04-30] MED LIST changes: +ASA81BEC PO; +CENTRUM SILVER1 EAC7; +KLOR-CON 1010 MEQ PO; +LASIX 40 MG TAB40 MG PO; +ONE TOUCH ULTR1 EACH
[2020-04-30 09:41] LABS: HEMATOCRIT 25.3 % (42.0-52.0); HEMOGLOBIN 7.9 gm/dL (14.0-18.0); MCHC 31.3 g/dL (28.0-37.0); MCV 80.1 fL (80.0-100.0); RBC 3.16 mil/uL (4.50-6.00); RDW-CV 23.6 % (10.5-14.5); WBC 3.9 thou/uL (4.0-11.0)
[2020-04-30 10:04] LABS: ALBUMIN 3.4 g/dL (3.4-5.0); ALKALINE PHOSPHATASE 77 U/L (46-116); ANION GAP 8 mmol/L (7-16); BUN 17 mg/dL (7-18); CHLORIDE 108 mmol/L (98-107); CHOLESTEROL 124 mg/dL (<200); CO2 27 mmol/L (21-32); CREATININE 0.9 mg/dL (0.6-1.3); GLUCOSE 162 mg/dL (70-99); HDL CHOLESTEROL 34 mg/dL (>40); LDL CHOLESTEROL 60 mg/dL (<100); NT-PRO BRAIN NAT PEPTIDE 295 pg/mL (<300); POTASSIUM 4.1 mmol/L (3.5-5.1); SGOT 31 U/L (15-37); SGPT 41 U/L (30-65); SODIUM 143 mmol/L (136-145); TC:HDL 3.6 Ratio (Not establshd); TOTAL BILIRUBIN 0.3 mg/dL (<0.1-1.0); TOTAL PROTEIN 6.9 g/dL (6.4-8.2); TRIGLYCERIDE 150 mg/dL (<150); VLDL 30 mg/dL (<40)
[2020-04-30 10:05] LABS: SERUM ASSESSMENT Clear
[2020-04-30 10:16] LABS: APTT 25.9 Seconds (25.0-31.3); PROTIME 10.6 Seconds (9.20-11.50)
--- NOTE | 2020-04-30 10:36 | EKG ---
[place] [address] ELECTROCARDIOGRAM REPORT Name: ELEONORA WINKLER Room: [facility]#: [id number] Admission: 04/30/20 Attend Phys: Gal Botello MD Discharge: Date of : 40 Date of Service: 04/30/20 0935 Report #: [id number] THIS REPORT FOR: //name// [facility] Test Date: 2020-04-30 Test Time: 09:35:43 Pat Name: ELEONORA WINKLER Department: Room: Gender: Shells Inspector: : 1940 Requested By: Gal Botello Order Number: [id number] Reading MD: Gal Botello Measurements Intervals [place] Rate: 67 P: 37 [place]: 168 QRS: 19 QRSD: 99 T: -89 QT: 455 QTc: 481 Interpretive Statements Sinus rhythm Probable LVH with secondary repol abnrm Borderline prolonged QT interval Compared to ECG 10/20/2019 12:35:19 No significant changes Electronically Signed On 04-30-2020 10:34:40 CDT by Gal Botello [email or web address] <ELECTRONICALLY SIGNED> By: Gal Botello MD, [facility] 04/30/20 1034 0935 0935 Gal Botello MD, [facility] /EPI
[2020-04-30 12:03] LABS: BE -0.3 mmol/L (-2 to +3); PCO2 43.4 mmHg (35.0-45.0); PO2 103.5 mmHg (75.0-100.0); pH 7.377 (7.340-7.450)
--- NOTE | 2020-04-30 13:42 | NUR ---
I INSERTED MEAD'S CATHETER, COUDE TYPE IN PATIENT AT 13:20 PM, HE IS UNABLE TO URINATE AND HE STATED HE HAS ISSUE WITH HIS PROSTRATE SO COUDE IS INSERTED. HE COMPLAINS OF PAIN WHILE INSERTING SO, INJ MORPHINE 2 MG GIVEN AT 13:28 PER WRITTEN ORDER. URINE WAS CLEAR, STRAW COLORED AND WITHOUT CLOT OR ANY BLOODY PARTICLES.
--- NOTE | 2020-04-30 14:51 | CARD ---
[address] [address] CARDIAC CATH REPORT Name: ELEONORA WINKLER Room: [facility]#: [id number] Admission: 04/30/20 Attend Phys: Gal Botello MD, F Discharge: Date of : 40 Report #: [id number] THIS REPORT FOR: //name// cc: Gal Araujo MD, David L. MD ~ APPROVED REPORT Study performed: 04/30/2020 09:28:51 Patient Details Patient Status: Out-Patient Room #: The patient is a 79 year-old male Event Personnel Gal Botello Mercerizer Machine Operator, Carl Johns RN Laborer Car Barn, Andrzej Lundberg ASSISTANT PROFESSOR OF LIFE SCIENCES Monitor, David Arevalo RTR Scrub Procedures Performed Art Access - R femoral artery* Davy Access - R femoral vein Right and Left Heart Cath w/or w/o Coronarie [id number] RLHC Hemostasis w/ Mynx and aortic root injection Indication Dyspnea, Valvular heart disease Risk Factors Hypercholesterolemia, Hypertension, Diabetes Previous Procedures/Diagnoses Previous PCI Procedure Narrative The patient was brought electively to the Cardiac Catheterization Laboratory and was prepped and draped in a sterile manner. The right femoral was infiltrated with subcutaneous anesthesia. A Right Heart Catheterization was performed with a 6 Fr. Dec[place]-Aissatou catheter and pressure were recorded. Cardiac outputs were obtained by the Thermal Dilution method. A 7Fr x 11cm Lorena sheath was inserted into the RFA^. Coronary angiography was performed using coronary diagnostic catheters. The right coronary system was accessed and visualized with a JR4 catheter. The left coronary system was accessed and visualized with a JL4 catheter. The left ventricle was accessed and visualized with a dual lumen pigtail catheter. Left ventricular/Aortic Valve gradient assessed via simultaneous left ventricle and right femoral artery pressure. Left ventriculogram was performed [place] [address] CARDIAC CATH REPORT Name: ELEONORA WINKLER Room: [facility]#: [id number] Admission: 04/30/20 Attend Phys: Gal Botello MD, F Discharge: Date of : 40 Report #: [id number] An aortogram of the ascending aorta was performed. Closure device was deployed with a 6 Fr Mynx. Hemostasis was obtained with manual pressure following sheath removal without any complications. The patient tolerated the procedure well and there were no complications associated with the procedure. There was no hematoma. A 7F sheath was inserted into the RFV and hemostasis achieved at end of procedure by manual pressure. Aortic root injection was performed with a pigtail catheter in the GEORGIAN position. The aortic valve was crossed using a [place] wire through the JR4 catheter. The JR4 catheter was exchanged over an exchange wire for a [place] dual lumen pigtail catheter. Intraoperative Conscious Sedation Sedation start time: 1116 Case end Time: 1201 Fentanyl 75 mcg Fluoro Time: 7.9 minutes Dose: DAP 99594 cGycm2 1165 mGy Contrast Type and Amount: Omnipaque 190 ml Coronary Angiography The patient's coronary anatomy is right dominant. Diagnostic Cath Left Main 30% distal stenosis LAD 0% stenosis Circumflex Long stent in the proximal and mid circumflex artery that had a distal 30% stenosis beyond the stent Right Coronary Long stent in the mid RCA that had a 40% stenosis proximal to the stent, and a 70% stenosis noted in the distal portion of the stent Left Ventriculography The left ventricular ejection fraction is estimated to be 45-50%. Left ventricular wall motion abnormalities are present. There is no mitral insufficiency. mild hypokinesis noted of the distal inferior wall. No aortic insufficiency noted on aortic root injection. Hemodynamics The right atrial mean pressure is 6 mmHg. The right ventricular pressure is 45/4 mmHg. The pulmonary artery pressure is 37/16 mmHg with a mean of 20 mmHg. The mean pulmonary capillary wedge pressure is 8 mmHg. The aortic pressure is 147/58 mmHg with a mean of 86 mmHg. The left ventricular pressure is 172/14 mmHg with a mean of mmHg. The left ventricular end diastolic pressure is 12 [place] [address] CARDIAC CATH REPORT Name: ELEONORA WINKLER Room: [facility]#: [id number] Admission: 04/30/20 Attend Phys: Gal Botello MD, F Discharge: Date of : 40 Report #: [id number] left ventricle to the aorta revealed a 60 mm gradient across the aortic valve. PaO2 saturation is 85.20 %. Arterial saturation is 96.30 %. The cardiac output and index were assessed using thermodilution. The cardiac output using thermo method is 6.77 L/min. The peak gradient across the aortic valve is 60 mmHg. The aortic valve area is 0.85 cm2. Conclusion 1. no restenosis of stents in the circumflex artery, and a 70% stenosis was noted in the stent in the mid RCA 2. LVEF 45-50% 3. Severe aortic stenosis with a calculated valve area of 0.85 cm squared, but no aortic insufficiency noted Recommendations Refer for possible TAVR <ELECTRONICALLY SIGNED> By: Gal Botello MD, [facility] 04/30/20 1449 1449 1449Gal Botello MD, FACC /INF
--- NOTE | 2020-04-30 15:34 | H ---
[place] [address] HISTORY AND PHYSICAL Name: ELEONORA WINKLER Room: [facility]#: [id number] Admission: 04/30/20 Attend Phys: Gal Botello MD, F Discharge: Date of : 40 Report #: [id number] THIS REPORT FOR: //name// cc: Gal Araujo MD, David L. MD ~ THIS REPORT FOR: //name// CC: Gal Durham DATE OF SERVICE: 04/30/2020 CARDIOLOGY CONSULTATION HISTORY OF PRESENT ILLNESS: The patient is a 79-year-old white male who came to the outpatient department for repeat cardiac catheterization. The patient has an extensive past medical history. He had previous coronary stents placed in 2004 and again in [address] Lawrence Hagen. I performed a cardiac catheterization in 09/2018 from the radial artery. He was found to have a 95% stenosis in circumflex artery and placed a new bare metal stent. He has a long history of a heart murmur and anemia. He has required transfusions in the past. He was admitted to [place] in September with anemia and required transfusion. He underwent upper endoscopy as well as colonoscopy. He was found to have a polyp, however, no source of bleeding was found. He apparently swallowed a small bowel capsule and again no source of bleeding was found. He denied any history of gross bleeding with hematemesis or bloody stool. Recently, he does have occasional jaw pain. He does get short of breath with exertion and has noticed some edema. Denies any palpitations or syncope. He actually had an echocardiogram done last September that showed evidence of severe aortic stenosis with a peak gradient of 64 mmHg. There is no aortic regurgitation. There is mild mitral regurgitation. Because of severe aortic stenosis and dyspnea, I have recommended cardiac catheterization for consideration of TAVR. PAST MEDICAL HISTORY: He has had previous shoulder surgery, appendectomy. He has a history of hypertension, hyperlipidemia and diabetes. CURRENT MEDICATIONS: Include Januvia, lisinopril, Plavix, Protonix, metformin, and insulin. In the past, he could not tolerate statin drugs because of myalgias. He could not tolerate lidocaine in the past. FAMILY HISTORY: Positive for heart disease. 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 Quit smoking years ago. He has used alcohol in the past, [place] [address] HISTORY AND PHYSICAL Name: ELEONORA WINKLER Room: [facility]#: [id number] Admission: 04/30/20 Attend Phys: Gal Botello MD, F Discharge: Date of : 40 Report #: [id number]. REVIEW OF SYSTEMS: No history of stroke. He apparently had a carotid Doppler study in the past that showed no significant carotid stenosis. No history of asthma, liver disease, kidney disease or cancer. He wears glasses. No psychiatric illness. No chronic skin condition. PHYSICAL EXAMINATION: GENERAL: Elderly male, appeared in no distress. VITAL SIGNS: He had a blood pressure of 130/90, pulse is 80. HEENT: He was anicteric. Conjunctivae are pale. Mucous membranes moist. NECK: Veins are nondistended. Radiating systolic murmur noted in the carotids. Neck was supple. CHEST: Clear to auscultation. CARDIOVASCULAR: Regular rate and rhythm, grade 4 systolic ejection murmur along the left sternal border. ABDOMEN: Soft. EXTREMITIES: Had trace edema. Dorsalis pedis pulse 1+ bilaterally. SKIN: Cool and dry. NEUROLOGIC: Nonfocal. IMPRESSION AND RECOMMENDATIONS: 1. Diabetes. 2. Coronary artery disease with previous stenting. Recent jaw pain. The patient is on Plavix. 3. Hypertension. The patient is on an JACQUI inhibitor. 4. Severe aortic stenosis. Recommend cardiac catheterization for possible TAVR in the future. 5. Hyperlipidemia. The patient could not tolerate statin drugs. 6. Anemia. No obvious bleeding. Possible angiodysplasia from aortic stenosis. The patient has received a transfusion in the past. <ELECTRONICALLY SIGNED> By: Gal Botello MD, FACC 04/30/20 1534 1024 [id number] Botello MD, FAC /nt
== END | disposition home or self-care (01) ==
LOC: M.CL 09:08
PROVIDERS: Internal Medicine Cardiovascular Disease
DX: R06.00 Dyspnea, unspecified (principal); T82.855A Stenosis of coronary artery stent, initial encounter; I35.0 Nonrheumatic aortic (valve) stenosis; I10 Essential (primary) hypertension; E78.00 Pure hypercholesterolemia, unspecified; E11.9 Type 2 diabetes mellitus without complications; E78.5 Hyperlipidemia, unspecified; K21.9 Gastro-esophageal reflux disease without esophagitis; Z90.49 Acquired absence of other specified parts of digestive tract; Z98.890 Other specified postprocedural states; Z87.891 Personal history of nicotine dependence; Z88.8 Allergy status to other drugs, medicaments and biological substances

== ENCOUNTER 2020-05-01 08:22 | Inpatient (IN) | payer MEDICARE ==
[2020-05-01] VITALS (23 sets, daily range): BP systolic 79–141; BP diastolic 38–60
[~2020-05-01] VITALS: Ht 177.8 cm; Wt 89.8 kg
[~2020-05-01 08:22] MED LIST changes: -ASA81BEC PO
[2020-05-01 09:09] LABS: HEMATOCRIT 26.1 % (42.0-52.0); HEMOGLOBIN 8.2 gm/dL (14.0-18.0); MCH 25.6 pg (26.0-34.0); MCHC 31.6 g/dL (28.0-37.0); MCV 80.9 fL (80.0-100.0); MPV 6.9 fl. (7.2-11.1); NUCLEATED RBCS 1 /100WBC; PLATELET COUNT* 214 thou/uL (150-400); RBC 3.22 mil/uL (4.50-6.00); RDW-CV 24.4 % (10.5-14.5); WBC 8.2 thou/uL (4.0-11.0)
[2020-05-01 09:16] LABS: CALCIUM 8.2 mg/dL (8.5-10.1); CREATININE 1.1 mg/dL (0.6-1.3)
[2020-05-01 09:20] LABS: APTT 21.9 Seconds (25.0-31.3); PROTIME 10.7 Seconds (9.20-11.50)
[2020-05-01 09:27] LABS: ALBUMIN 3.4 g/dL (3.4-5.0); MAGNESIUM 1.8 mg/dL (1.8-2.4); TOTAL BILIRUBIN 0.5 mg/dL (<0.1-1.0); TOTAL PROTEIN 6.9 g/dL (6.4-8.2)
[2020-05-01 09:30] LABS: BE -1.6 mmol/L (-2 to +3); PCO2 34.4 mmHg (35.0-45.0); PO2 99.4 mmHg (75.0-100.0); pH 7.431 (7.340-7.450)
[2020-05-01 09:41] LABS: ABSOLUTE EOSINOPHILS 0.2 thou/uL (0.0-0.7); ABSOLUTE LYMPHOCYTES 0.3 thou/uL (0.8-5.3); ABSOLUTE NEUTROPHILS 7.7 thou/uL (1.6-8.1)
[2020-05-01 09:44] LABS: ANISOCYTOSIS 2+; HYPOCHROMASIA Occasional; PLATELET ESTIMATE ADEQUATE
[2020-05-01 09:45] LABS: POLYCHROMASIA Occasional; TEARDROPS Occasional
[2020-05-01 10:33] LABS: URINE BILIRUBIN NEGATIVE (Negative); URINE BLOOD 1+ (Negative); URINE CLARITY CLEAR; URINE COLOR YELLOW; URINE GLUCOSE-RANDOM NEGATIVE (Negative); URINE KETONES 1+ (Negative); URINE LEUKOCYTES-REFLEX NEGATIVE (Negative); URINE PROTEIN NEGATIVE (Negative); URINE SPECIFIC GRAVITY 1.025 (1.005-1.030); URINE UROBILINOGEN 0.2 E.U./dl (0.2-1.0)
[2020-05-01 10:34] LABS: URINE NITRITE-REFLEX POSITIVE (Negative)
[2020-05-01 10:39] LABS: SQUAMOUS 0-3 Few /LPF (0-3); WBC CLUMPS Few (None Seen)
[2020-05-01 10:40] LABS: BACTERIA-REFLEX >30 Many /HPF (None Seen); CASTS None Seen /LPF (None Seen); CRYSTALS None Seen /LPF (None Seen); MUCUS None Seen strn/LPF (None Seen); URINE RBC 3-10 Few /HPF (0-2); URINE WBC-REFLEX 6-15 Few /HPF (0-5)
[2020-05-01] MEDS ORDERED: ASA81BEC PO (12:47)
[2020-05-01 14:13] LABS: BE -3.7 mmol/L (-2 to +3); PCO2 46.3 mmHg (35.0-45.0); PO2 77.5 mmHg (75.0-100.0); pH 7.305 (7.340-7.450)
--- NOTE | 2020-05-01 18:00 | NUR ---
IVF, VERSED AND DOPAMINE INFUSING. MEAD CATHETER PLACED. OG TO LIS. ON VENT. NO S/S OF PAIN.
[2020-05-01 19:04] LABS: MCH 25.1 pg (26.0-34.0); MCHC 30.7 g/dL (28.0-37.0); MCV 81.5 fL (80.0-100.0); MPV 7.3 fl. (7.2-11.1); NUCLEATED RBCS 0 /100WBC; PLATELET COUNT* 216 thou/uL (150-400); RBC 3.19 mil/uL (4.50-6.00); RDW-CV 24.6 % (10.5-14.5)
[2020-05-01 19:10] LABS: WBC 24.9 thou/uL (4.0-11.0)
[2020-05-01 19:20] LABS: CALCIUM 7.4 mg/dL (8.5-10.1); CREATININE 1.2 mg/dL (0.6-1.3); TOTAL BILIRUBIN 0.9 mg/dL (<0.1-1.0); TOTAL PROTEIN 6.4 g/dL (6.4-8.2)
[2020-05-01 19:34] LABS: ABSOLUTE LYMPHOCYTES 0.2 thou/uL (0.8-5.3); ABSOLUTE MONOCYTES 0.7 thou/uL (0.0-1.2); ABSOLUTE NEUTROPHILS 23.9 thou/uL (1.6-8.1); PLATELET ESTIMATE ADEQUATE
[2020-05-01 19:35] LABS: ANISOCYTOSIS 3+; POIKILOCYTOSIS 1+; POLYCHROMASIA Occasional
[2020-05-02] VITALS (67 sets, daily range): BP systolic 66–147; BP diastolic 29–62
[2020-05-02 04:18] LABS: ABSOLUTE LYMPHOCYTES 0.7 thou/uL (0.8-5.3); ABSOLUTE MONOCYTES 0.6 thou/uL (0.0-1.2); ABSOLUTE NEUTROPHILS 16.5 thou/uL (1.6-8.1); BASOPHILS 0.2 %; HEMATOCRIT 25.9 % (42.0-52.0); HEMOGLOBIN 7.9 gm/dL (14.0-18.0); LYMPHOCYTES 3.8 %; MCH 24.9 pg (26.0-34.0); MCHC 30.7 g/dL (28.0-37.0); MCV 81.3 fL (80.0-100.0); MONOCYTES 3.5 %; MPV 7.4 fl. (7.2-11.1); NUCLEATED RBCS 0 /100WBC; PLATELET COUNT* 215 thou/uL (150-400); POLYS 92.5 %; RBC 3.18 mil/uL (4.50-6.00); RDW-CV 24.8 % (10.5-14.5); WBC 17.8 thou/uL (4.0-11.0)
[2020-05-02 04:31] LABS: CALCIUM 7.4 mg/dL (8.5-10.1); CREATININE 1.1 mg/dL (0.6-1.3); POTASSIUM 3.7 mmol/L (3.5-5.1)
[2020-05-02 10:10] LABS: BE -0.7 mmol/L (-2 to +3); PCO2 41.6 mmHg (35.0-45.0); pH 7.384 (7.340-7.450)
[2020-05-02 10:12] LABS: PO2 138.9 mmHg (75.0-100.0)
[2020-05-02 10:37] LABS: TROPONIN-I LEVEL 4.46 ng/mL (<0.06)
--- NOTE | 2020-05-02 12:12 | EKG ---
[place] [address] ELECTROCARDIOGRAM REPORT Name: PETERSONELEONORA Ca Room: [address] ADM IN M.R.#: [id number] Admission: 05/01/20 Attend Phys: Dion Saravia, Discharge: Date of : 40 Date of Service: 05/01/20 0825 Report #: [id number] THIS REPORT FOR: //name// [facility] ED Test Date: 2020-05-01 Test Time: 08:25:13 Pat Name: ELEONORA WINKLER Department: Room: [facility] Gender: M Reimbursement Representative: BÁRBARA : 1940 Requested By: Karlee Fernandez Order Number: [id number] MD: Gal Botello Measurements Intervals [place] Rate: 96 P: 46 UT: 152 QRS: 69 QRSD: 101 T: -37 QT: 349 QTc: 441 Interpretive Statements Sinus rhythm Borderline low voltage, extremity leads Repol abnrm, severe global ischemia (LM/MVD) Compared to ECG 04/30/2020 09:35:43 Possible ischemia now present Electronically Signed On 05-02-2020 12:10:42 CDT by Gal Botello [email or web address] <ELECTRONICALLY SIGNED> By: Gal Botello MD, [facility] 05/02/20 1210 4 4 Gal Botello MD, FAC /EPI
--- NOTE | 2020-05-02 17:57 | NUR ---
PT REMAINS ON VENT. SEDATED. DOPAMINE INFUSING TO KEEP SYSTOLIC BP GREATER THAN 110. MEAD TO ALIYA. NO S/S OF PAIN. PT OPENS HIS EYES AT TIMES WHILE BEING REPOSITIONED.
[2020-05-03] VITALS (61 sets, daily range): BP systolic 64–142; BP diastolic 30–58
[2020-05-03 05:07] LABS: ABSOLUTE BASOPHILS 0.1 thou/uL (0.0-0.2); ABSOLUTE EOSINOPHILS 0.1 thou/uL (0.0-0.7); ABSOLUTE LYMPHOCYTES 0.9 thou/uL (0.8-5.3); ABSOLUTE MONOCYTES 1.1 thou/uL (0.0-1.2); ABSOLUTE NEUTROPHILS 9.4 thou/uL (1.6-8.1); BASOPHILS 0.5 %; EOSINOPHILS 0.6 %; HEMATOCRIT 23.9 % (42.0-52.0); HEMOGLOBIN 7.4 gm/dL (14.0-18.0); LYMPHOCYTES 8.1 %; MCH 25.3 pg (26.0-34.0); MCHC 30.8 g/dL (28.0-37.0); MCV 82.2 fL (80.0-100.0); MONOCYTES 9.3 %; MPV 7.2 fl. (7.2-11.1); NUCLEATED RBCS 0 /100WBC; PLATELET COUNT* 220 thou/uL (150-400); POLYS 81.5 %; RBC 2.91 mil/uL (4.50-6.00); WBC 11.5 thou/uL (4.0-11.0)
[2020-05-03 05:14] LABS: BE 1.3 mmol/L (-2 to +3); PCO2 36.6 mmHg (35.0-45.0); pH 7.456 (7.340-7.450)
[2020-05-03 05:31] LABS: ALBUMIN 2.7 g/dL (3.4-5.0); CALCIUM 7.5 mg/dL (8.5-10.1); POTASSIUM 3.6 mmol/L (3.5-5.1); TOTAL BILIRUBIN 0.5 mg/dL (<0.1-1.0); TOTAL PROTEIN 6.2 g/dL (6.4-8.2)
--- NOTE | 2020-05-03 06:13 | NUR ---
ASSUMED PATIENT CARE AT 1900. ASSESSMENTS COMPLETED CHARTED. CARDIAC AND HEMODYNAMIC MONITORING IN PLACE. BED LOCKED AND IN LOWEST POSITION FOR PATIENT SAFETY.
[2020-05-03 08:43] LABS: BE 1.7 mmol/L (-2 to +3); PCO2 39.1 mmHg (35.0-45.0); PO2 81.3 mmHg (75.0-100.0)
[2020-05-03 10:00] LABS: PLATELET ESTIMATE ADEQUATE
[2020-05-03 10:01] LABS: HYPOCHROMASIA 1+; POLYCHROMASIA 1+
[2020-05-03 10:02] LABS: ANISOCYTOSIS 1+; POIKILOCYTOSIS 1+
--- NOTE | 2020-05-03 12:51 | CON ---
[address] [address] CONSULTATION Name: ELEONORA WINKLER Room: [address] IN .R.#: [id number] Admission: 05/01/20 Attend Phys: Dion Saravia MD Discharge: Date of : 40 Report #: [id number] THIS REPORT FOR: //name// cc: Gal Araujo MD, David L. MD ~ THIS REPORT FOR: //name// CC: Dion Araujo DATE OF SERVICE: 05/02/2020 CARDIOLOGY CONSULTATION HISTORY OF PRESENT ILLNESS: The patient is a 79-year-old white male who was admitted yesterday with shortness of breath. The patient has had coronary artery stents placed both in 2004, 2006 and in September 2018. He has a long history of a heart murmur and anemia. He has required transfusion in the past. Previous GI workup including upper endoscopy, colonoscopy and small bowel camera showed no obvious bleeding. He does receive iron infusions. Recently he does note occasional jaw pain, but denies any chest pressure. He does get short of breath and he over exerts herself and has occasional edema. Echocardiogram last September showed an ejection fraction of 60% with severe aortic stenosis. Because of complaint of shortness of breath and severe aortic stenosis, I actually admitted him 2 days ago for an outpatient cardiac catheterization. This showed evidence of severe aortic stenosis with a peak gradient across the aortic valve of 60 mmHg and a calculated aortic valve area of 0.8 cm2. There was no restenosis stents in the circumflex artery. The stent in the right coronary artery did have a 70% stenosis. Ejection fraction was 50%. He tolerated the procedure well. After the procedure, he remained at bed rest for 4 hours. He did require placement of a Leigh catheter after the procedure. He was then discharged later in the afternoon. According to the , he was doing well at the time of discharge. Yesterday, he had increasing shortness of breath. He was brought back to the hospital. Because of respiratory insufficiency, he was intubated. I was asked to see him for further evaluation and treatment. He denied any chest pain, palpitation or syncope. PAST MEDICAL HISTORY: Significant for shoulder surgery, appendectomy, hypertension, hyperlipidemia and diabetes. MEDICATIONS: Januvia, lisinopril, Plavix, Protonix, metformin, insulin. He cannot tolerate statin drugs in the past because of myalgias. FAMILY HISTORY: 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 Quit smoking years ago. No history of alcohol abuse. REVIEW OF SYSTEMS: No history of stroke. Carotid Doppler study in the past showed no significant stenosis. No history of asthma, liver disease, kidney disease. He wears glass. No psychiatric illness. No chronic skin condition. PHYSICAL EXAMINATION: GENERAL: Revealed an elderly male who was on the ventilator. VITAL SIGNS: His blood pressure is 100 on intravenous dopamine, pulse 66 and regular. HEENT: He was anicteric. Mucous membranes moist. NECK: Veins do not appear distended. CHEST: Clear to auscultation. CARDIOVASCULAR: Regular rate and rhythm, grade 4 systolic ejection murmur at left sternal border. ABDOMEN: Soft. EXTREMITIES: Had trace edema. SKIN: Warm and dry. NEUROLOGIC: Nonfocal. IMAGING STUDIES: His ECG done yesterday showed a sinus rhythm. There is ST segment depression of up to 2.5 mm in V4, V5, V6 consistent with ischemia. His workup yesterday, he had a portable chest x-ray that showed pulmonary infiltrates. He had a CT scan of the chest using a PE protocol that showed no pulmonary embolus, atelectasis in the lower lobes. CT scan of the abdomen was performed with contrast that showed no acute abdominal pathology gallstones hematoma in the right groin area. He had an ultrasound of the groin performed today that showed no pseudoaneurysm, AV fistula. LABORATORY DATA: Sodium 141, potassium 3.7, BUN 15, creatinine 1.0, glucose 268, SGOT 61, albumin 3.0. His troponin elevated yesterday was 7.1. White blood cell count 17.8, hemoglobin 7.9, it was 7.2 last September. Urinalysis yesterday positive for ketones. There were a few wbc's, few RBCs and many bacteria. IMPRESSION AND RECOMMENDATIONS: 1. Acute respiratory failure. Reason unclear. Possible pneumonia. 2. Diabetes. 3. Previous coronary artery stenting. The patient has evidence of a non-STEMI. I would continue Plavix. 4. Hypertension. I would hold JACQUI inhibitor. 5. Severe aortic stenosis. The patient has been referred for transcatheter aortic valve replacement. 6. Hyperlipidemia. The patient cannot tolerate statin drugs in the past. 7. Anemia. Possible angiodysplasia from aortic stenosis. The patient has [facility] [address] [place] [address] CONSULTATION Name: ELEONORA WINKLER Room: [address] IN ..#: [id number] Admission: 05/01/20 Attend Phys: Dion Saravia MD Discharge: Date of : 40 Report #: [id number] received transfusions in the past. 8. Urinary tract infection. Possible sepsis. <ELECTRONICALLY SIGNED> By: Gal Botello MD, FACC 05/03/20 1251 1248 [id number] Botello MD, FACC /nt
--- NOTE | 2020-05-03 14:12 | NUR ---
ICU rounds: Pt weaned from vent today. CM spoke with Pt's via phone. Pt is A&O. Normally independent, uses a cane PRN. Pt has a cpap that he sleeps with at [facility]. No hx of HH or SNF. CM following for dc needs.
[2020-05-04] VITALS (12 sets, daily range): BP systolic 96–169; BP diastolic 53–75
[2020-05-04 05:14] LABS: ABSOLUTE BASOPHILS 0.1 thou/uL (0.0-0.2); ABSOLUTE EOSINOPHILS 0.2 thou/uL (0.0-0.7); ABSOLUTE LYMPHOCYTES 1.1 thou/uL (0.8-5.3); ABSOLUTE MONOCYTES 0.7 thou/uL (0.0-1.2); ABSOLUTE NEUTROPHILS 6.6 thou/uL (1.6-8.1); BASOPHILS 1.1 %; HEMATOCRIT 23.2 % (42.0-52.0); HEMOGLOBIN 7.3 gm/dL (14.0-18.0); LYMPHOCYTES 12.8 %; MCHC 31.3 g/dL (28.0-37.0); MCV 83.1 fL (80.0-100.0); MONOCYTES 7.6 %; MPV 7.4 fl. (7.2-11.1); NUCLEATED RBCS 0 /100WBC; PLATELET COUNT* 207 thou/uL (150-400); POLYS 76.5 %; RDW-CV 26.1 % (10.5-14.5); WBC 8.7 thou/uL (4.0-11.0)
[2020-05-04 05:25] LABS: CALCIUM 8.1 mg/dL (8.5-10.1); MAGNESIUM 2.2 mg/dL (1.8-2.4); POTASSIUM 3.5 mmol/L (3.5-5.1)
[2020-05-04 07:25] LABS: ANISOCYTOSIS 2+; PLATELET ESTIMATE ADEQUATE
--- NOTE | 2020-05-04 12:03 | NUR ---
ICU rounds: Repeat cath tomorrow. Doing well.
--- NOTE | 2020-05-04 17:58 | NUR ---
PT PROGRESSED TOWARD GOALS TELEY STATUS CATH FOR STENT TO RCA SCHEDULED FOR TOMORROW DR STRINGER SPOKE WITH PT AND SPOUSE REGARDING PROCEDURE PT HAD ONE UNIT OF PRBC TOLERATED WELL NO ADVERSE REACTIONS
[2020-05-05] VITALS (18 sets, daily range): BP systolic 138–177; BP diastolic 49–78
[2020-05-05 04:36] LABS: HEMATOCRIT 27.7 % (42.0-52.0); MCV 83.6 fL (80.0-100.0); NUCLEATED RBCS 0 /100WBC; POLYS 72.8 %
[2020-05-05 04:39] LABS: ABSOLUTE EOSINOPHILS 0.3 thou/uL (0.0-0.7); ABSOLUTE MONOCYTES 0.6 thou/uL (0.0-1.2); ABSOLUTE NEUTROPHILS 5.1 thou/uL (1.6-8.1); BASOPHILS 0.7 %; EOSINOPHILS 3.9 %; MCH 27.1 pg (26.0-34.0); MCHC 32.4 g/dL (28.0-37.0); MONOCYTES 8.6 %; MPV 7.4 fl. (7.2-11.1); PLATELET COUNT* 206 thou/uL (150-400); RBC 3.31 mil/uL (4.50-6.00); RDW-CV 24.7 % (10.5-14.5)
[2020-05-05 04:44] LABS: ALBUMIN 2.8 g/dL (3.4-5.0); CALCIUM 7.7 mg/dL (8.5-10.1); CREATININE 1.1 mg/dL (0.6-1.3); MAGNESIUM 2.1 mg/dL (1.8-2.4); POTASSIUM 3.5 mmol/L (3.5-5.1); TOTAL BILIRUBIN 0.9 mg/dL (<0.1-1.0); TOTAL PROTEIN 6.5 g/dL (6.4-8.2)
--- NOTE | 2020-05-05 06:33 | NUR ---
ASSUMED PATIENT CARE AT 1900. ASSESSMENT COMPLETED CHARTED. CARDIAC MONITORING IN PLACE. HOURLY ROUNDING IN PLACE FOR PATIENT SAFETY. FALL PRECAUTIONS IN PLACE FOR PATIENT SAFETY. BED LOCKED AND IN LOWEST POSITION. CLWR.
[2020-05-05 08:02] LABS: PLATELET ESTIMATE ADEQUATE
--- NOTE | 2020-05-05 12:45 | NUR ---
ICU rounds: Pt to have repeat cath today, plan dc to home tomorrow.
[2020-05-06] VITALS (18 sets, daily range): BP systolic 107–181; BP diastolic 39–140
[2020-05-06 05:11] LABS: ABSOLUTE BASOPHILS 0.1 thou/uL (0.0-0.2); ABSOLUTE EOSINOPHILS 0.4 thou/uL (0.0-0.7); ABSOLUTE LYMPHOCYTES 0.9 thou/uL (0.8-5.3); ABSOLUTE MONOCYTES 0.6 thou/uL (0.0-1.2); ABSOLUTE NEUTROPHILS 5.2 thou/uL (1.6-8.1); BASOPHILS 0.8 %; HEMATOCRIT 30.5 % (42.0-52.0); HEMOGLOBIN 9.9 gm/dL (14.0-18.0); LYMPHOCYTES 12.8 %; MCH 27.2 pg (26.0-34.0); MCHC 32.4 g/dL (28.0-37.0); MONOCYTES 8.9 %; NUCLEATED RBCS 0 /100WBC; PLATELET COUNT* 226 thou/uL (150-400); POLYS 72.5 %; RBC 3.63 mil/uL (4.50-6.00); RDW-CV 25.8 % (10.5-14.5); WBC 7.2 thou/uL (4.0-11.0)
[2020-05-06 05:37] LABS: CALCIUM 8.2 mg/dL (8.5-10.1); POTASSIUM 3.4 mmol/L (3.5-5.1); TOTAL PROTEIN 6.7 g/dL (6.4-8.2)
[2020-05-06 05:42] LABS: TROPONIN-I LEVEL 0.72 ng/mL (<0.06)
--- NOTE | 2020-05-06 06:00 | NUR ---
VITALS STABLE, AFEBRILE. PT DENIES CP, NO CHANGE TO R GROIN ACCESS SITE. PT COMPLAINS OF INTERMITTENT ABDOMINAL PAIN AND SOB, NO INCREASE IN O2 DEMAND. REMAINS NSR. BMX1, 600CC UOP. CALL LIGHT WITHIN REACH. ABLE TO TURN SELF IN BED. WILL CONTINUE MONITORING.
[2020-05-06] MEDS ORDERED: BRILINTA90 MG PO (07:26)
[2020-05-06] MEDS ORDERED: CARVEDILOL3.125 MG PO (07:26)
[2020-05-06] MEDS ORDERED: LIPITOR40 MG PO (07:31)
--- NOTE | 2020-05-06 09:42 | NUR ---
PATIENT AWAKE AND ALERT THIS MORNING. PATIENT STATES THAT HE IS FEELING MUCH BETTER AND WANTS TO GO HOME TODAY. DISCHARGE ORDERS RECIEVED BUT PENDING CARDIO AND ID APPROVAL. RIGHT GROING SITE REMAINS C/D/I. NO HEMATOMA OR BRUIE NOTED. DENIES CHEST PAIN, STILL SOME SOB WITH EXCERTION BUT SATS AT 98% ON RA. C/O SOME ABDOMINAL PAIN TAKING HYDROCODONE FOR THAT AND STATES THAT IT DOES HELP. NO FURTHER CONCERNS AT THIS TIME. WILL CONTINUE TO MONITOR AND CARE PER PLAN OF CARE.
--- NOTE | 2020-05-06 10:35 | NUR ---
OKAY PER DR STRINGER FOR PATIENT TO DISCHARGE THIS AFTERNOON. AWAITING ID TO SEE PATIENT. NO OTHER CONCERNS, WILL CONTINUE TO MONITOR AND CARE PER PLAN OF CARE.
--- NOTE | 2020-05-06 11:42 | NUR ---
ICU rounds: Stent placed yesterday. Pt discharging to home today. CM provided Pt with goodrx coupon for Brilinta, Pt states that he will be in his donut hole soon. Pt does not qualify for Brilinta copay card, Pt has Medicare.
--- NOTE | 2020-05-06 12:48 | CARD ---
[address] [address] CARDIAC CATH REPORT Name: ELEONORA WINKLER Room: [address] IN [facility]#: [id number] Admission: 05/01/20 Attend Phys: Dion Saravia MD Discharge: Date of : 40 Report #: [id number] THIS REPORT FOR: //name// cc: Gal Araujo MD, David L. MD ~ APPROVED REPORT Study performed: 05/05/2020 14:42:34 Patient Details Patient Status: In-Patient Room #: The patient is a 79 year-old male Event Personnel Go Joel Primary Care Nurse, Carl Johns RN RN, Prudencio Soriano Kramer, Jessie RTR Monitor Procedures Performed Art Access - R femoral artery Left Heart Cath w/or w/o Coronaries LEONARDO w/Atherectomy Single RCA Hemostasis w/ Angioseal Indication Non-STEMI Risk Factors Obesity, Hypercholesterolemia, Hypertension Admission/Lab Medications/Medications given during procedure Angiomax bolus and infusion Procedure Narrative The patient was brought urgently to the Cardiac Catheterization Laboratory and was prepped and draped in a sterile manner. The right femoral was infiltrated with 2% Lidocaine subcutaneous anesthesia. A Hepzibah 6 FR sheath was inserted into the right femoral artery. Coronary angiography was performed using coronary diagnostic catheters. The right coronary system was accessed and visualized with a Guide 6 Fr JR 4 catheter. The left coronary system was accessed and visualized with a Diagnostic 6 Fr JL 4 catheter. The left ventricle was accessed and visualized with a Diagnostic 6 Fr JR 4 catheter. Left ventricular/Aortic Valve gradient assessed via catheter pullback. Pre-demployment femoral angiogram was performed . Closure device was deployed with a 6 Fr Angioseal 6 Fr. The patient tolerated the procedure well and there [place] [address] CARDIAC CATH REPORT Name: ELEONORA WINKLER Room: [address] IN [facility].#: [id number] Admission: 05/01/20 Attend Phys: Dion Saravia MD Discharge: Date of : 40 Report #: [id number] the procedure. There was no hematoma. Intraoperative Conscious Sedation No sedation was given. Case start was 15:11 and case end was 15:56. Fluoro Time: 13.4 minutes Dose: DAP [id number] cGycm2 1979 mGy Contrast Type and Amount: Visipaque 180 ml Coronary Angiography The patient's coronary anatomy is right dominant. Diagnostic Cath Left Main 0% narrowing LAD 30% proximal LAD narrowing Circumflex 30% mid circumflex narrowing Right Coronary Large dominant vessel with 30% proximal narrowing with 75% tubular mid vessel narrowing extending into an area of 90% focal mid right coronary stenosis Left Ventriculography Left Ventriculography was not performed. Hemodynamics The aortic pressure is 184/69 mmHg with a mean of 112 mmHg. The left ventricular pressure is 230/8 mmHg with a mean of mmHg. The left ventricular end diastolic pressure is 33 mmHg. Pullback from the left ventricle to the aorta revealed a 54 mm gradient across the aortic valve. PCI Technique Lesion Anticoagulation was achieved with Angiomax Drip. Patient was preloaded with Angiomax IV 14 ml. Percutaneous coronary intervention was performed on the mid right coronary artery. The lesion stenosis prior to intervention was 90% with DEAN 3 flow. A 6F JR 4.0 Guide Catheter was used to engage the right ostium. A IG: BMW 190cm Interventional Guidewire was used to cross the lesion. BALLOON DILATION A Balloon catheter NC Euphora 2.75x15 was inserted and inflated up to 16.00atm for 14seconds. Additional Inflation: 20.00atm for 12seconds. Additional Inflation: 24.00atm for 14seconds. A cutting balloon catheter Angiosculpt PTCA 3.0 x10 mm was inserted and inflated up to 10 CEDRIC for 9 seconds, 12 CEDRIC for10 seconds,14 CEDRIC for12 seconds, and 16 CERDIC for15 [place] [address] CARDIAC CATH REPORT Name: ELEONORA WINKLER Room: [address] IN ..#: [id number] Admission: 05/01/20 Attend Phys: Dion Saravia MD Discharge: Date of : 40 Report #: [id number] STENT DEPLOYMENT A drug-eluting stent Genesee RX Stent 3.0X30mm was inserted and inflated up to 14.00atm for 8seconds. Additional Inflation: 15.00atm for 8seconds. POST STENT DEPLOYMENT BALLOON DILATION A Balloon catheter NC Trek RX 3.0 X 8 was inserted and inflated up to 20.00atm for 9seconds. Additional Inflation: 22.00atm for 5seconds. Final angiography reveals 10 % stenosis with DEAN 3 flow. Conclusion 1. Significant coronary artery disease characterized by the following: A 30% proximal LAD narrowing B 30% mid circumflex narrowing C large dominant right coronary with 30% proximal narrowing and 75% tubular mid vessel stenoses extending into an area of focal 90% mid right coronary stenosis 2. Significant aortic stenosis with a peak to peak transaortic valvular systolic pressure gradient of 54 mm Hg 3. Severe elevation of left ventricular end-diastolic pressure at rest 4. Successful angioplasty atherotomy/atherectomy and stenting of the mid right coronary artery with 10% residual narrowing following stent deployment and DEAN-3 flow to the distal vessel Recommendations Cardiac Risk Reduction Program Aggressive Medical Therapy Medications Administered Aspirin (any) [place] [address] CARDIAC CATH REPORT Name: ELEONORA WINKLER Room: [address] IN [facility]#: [id number] Admission: 05/01/20 Attend Phys: Dion Saravia MD Discharge: Date of : 40 Report #: [id number] Diagnostic Cath Approved by: Go Joel MD Date/Time: 05/06/2020 12:45:54 <ELECTRONICALLY SIGNED> By: Go Joel MD, [facility] 05/06/20 1247 1247 1247Jobrady Joel MD, [facility] /INF
[2020-05-06] MEDS ORDERED: CEFUROXIME500 MG PO (13:18)
--- NOTE | 2020-05-06 13:43 | NUR ---
right subclavian TL Picc line discontinued with tip intact. Patient tolerated the proceedure well. No other concerns at this time. Will continue to monitor and care per plan of care.
--- NOTE | 2020-05-06 16:05 | EKG ---
[place] [address] ELECTROCARDIOGRAM REPORT Name: PETERSONELEONORA Ca Room: [address] IN M.R.#: [id number] Admission: 05/01/20 Attend Phys: Dion Saravia, Discharge: 05/06/20 Date of : 40 Date of Service: 05/06/20 0835 Report #: [id number] THIS REPORT FOR: //name// [facility] Test Date: 2020-05-06 Test Time: 08:35:44 Pat Name: ELEONORA WINKLER Department: Room: [address] Gender: M Component Lab Tech: : [id number] Requested By: Go Joel Order Number: [id number] Reading MD: Go Joel Measurements Intervals [place] Rate: 63 P: 45 LA: 168 QRS: 17 QRSD: 111 T: 16 QT: 489 QTc: 501 Interpretive Statements Sinus rhythm Probable left ventricular hypertrophy ST depr, consider ischemia, anterolateral lds Prolonged QT interval Compared to ECG 05/01/2020 08:25:13 Prolonged QT interval now present Early repolarization no longer present Ischemic changes have diminished Electronically Signed On 05-06-2020 16:04:23 CDT by Go Jole [email or web address] <ELECTRONICALLY SIGNED> By: Go Joel MD, [facility] 05/06/20 1604 Go Joel MD, [facility] /EPI
== END 2020-05-06 15:35 | disposition home or self-care (01) | DRG 853 ==
LOC: M.ERS 08:22 → M.ICU 11:11 → M.TBA-ER 11:11 → M.ICU 14:25
PROVIDERS: Internal Medicine; Internal Medicine Critical Care Medicine; Pediatrics; Personal Emergency Response Attendant; ADMIT Internal Medicine; ATTEND Internal Medicine
DX: A41.9 Sepsis, unspecified organism (principal); I21.4 Non-ST elevation (NSTEMI) myocardial infarction; J69.0 Pneumonitis due to inhalation of food and vomit; J96.01 Acute respiratory failure with hypoxia; R57.0 Cardiogenic shock; I50.41 Acute combined systolic (congestive) and diastolic (congestive) heart failure; Z20.828 Contact with and (suspected) exposure to other viral communicable diseases; E78.5 Hyperlipidemia, unspecified; E11.9 Type 2 diabetes mellitus without complications; K21.9 Gastro-esophageal reflux disease without esophagitis; E78.00 Pure hypercholesterolemia, unspecified; M19.90 Unspecified osteoarthritis, unspecified site; I35.0 Nonrheumatic aortic (valve) stenosis; D64.9 Anemia, unspecified; I25.10 Atherosclerotic heart disease of native coronary artery without angina pectoris; N30.90 Cystitis, unspecified without hematuria; B96.89 Other specified bacterial agents as the cause of diseases classified elsewhere; I95.9 Hypotension, unspecified; I11.0 Hypertensive heart disease with heart failure; B96.20 Unspecified Escherichia coli [E. coli] as the cause of diseases classified elsewhere; B96.1 Klebsiella pneumoniae [K. pneumoniae] as the cause of diseases classified elsewhere; Z95.5 Presence of coronary angioplasty implant and graft; Z90.49 Acquired absence of other specified parts of digestive tract; Z88.1 Allergy status to other antibiotic agents; Z88.8 Allergy status to other drugs, medicaments and biological substances; Z82.49 Family history of ischemic heart disease and other diseases of the circulatory system; Z87.891 Personal history of nicotine dependence; Z79.82 Long term (current) use of aspirin; Z79.899 Other long term (current) drug therapy